=== PATIENT | male | born 1975 | race Caucasian/White ===

== ENCOUNTER 2020-11-22 04:38 | Emergency (ER) | payer SELFPAY ==
[2020-11-22 04:54] VITALS: BP 152/104; PULSE 93; RESP 16; TEMP 36.6; O2SAT 99; BMI 24.4
--- NOTE | 2020-11-22 05:08 | XRR_ITS ---
PROCEDURE INFORMATION: Exam: XR Cervical Spine Exam date and time: 11/22/2020 5:08 AM Age: 45 years old Clinical indication: Radicular pain (radiculopathy); Location of radicular pain not specified; Prior surgery; Surgery date: 6+ months; Surgery type: C spine; Additional info: Left radicular neck pain TECHNIQUE: Imaging protocol: XR of the cervical spine. Views: 2 or 3 views. COMPARISON: No relevant prior studies available. FINDINGS: Bones/joints: Anterior cervical fixation hardware is in place C5-C6. There is normal vertebral body alignment. There are normal vertebral body heights. The dens is intact. The lateral masses of C1 are symmetric. Mild disc space narrowing C4-C5 and C6-C7. No fracture. Soft tissues: Atlantodental interval and prevertebral soft tissues are normal. Other findings: . XR/XR cervical spine 3V* 70630 IMPRESSION: 1. No fracture. 2. Mild disc space narrowing C4-C5 and C6-C7.
--- NOTE | 2020-11-22 05:18 | W.ED.BACK ---
HPI - Back Pain/Injury General: Chief Complaint: Back Pain/Injury Stated Complaint: neck injury Time Seen by Provider: 11/22/20 05:01 History of Present Illness: HPI Narrative: 45-year-old male with a history of fusion at C5-6. He presents with neck pain radiating into his left arm, with a burning sensation in his left upper extremity worsening over a couple weeks now. He was having trouble sleeping with it, so decided to come in. He notes he is not dropping things any more than he had prior. MD elicited complaint: other Onset (ago): day(s) Timing: constant and progressively worsening Severity: moderate Similar Symptoms Previously: Yes Quality: burning Radiation: other (Left upper extremity) Exacerbating factors: movement and lifting Relieving factors: none Associated symptoms: Deny abdominal pain, chills, change in bowel habits, dysuria, fever(s), nausea, vomiting or weakness Treatments prior to arrival: ASA Review of Systems Const: Denies: fever(s) or chills Card: Denies: chest pain Resp: Reports: non-productive cough; Denies: dyspnea or productive cough GI: Denies: abdominal pain, nausea, vomiting or change in bowel habits : Denies: dysuria Neuro: Reports: numbness in extremities; Denies: headache(s) or weakness in extremities Physical Exam Const: COMMON NORMALS: no acute distress, patient oriented x3 and alert HENMT: COMMON NORMALS: normocephalic, atraumatic and Normal external nose present HEAD & SCALP: normocephalic and atraumatic FACE & SINUS: normal facial exam NOSE: Normal external nose present Neck/C-Spine: CERVICAL SPINE: Yes Cervical spine tenderness OTHER: Examination of the cervical spine reveals midline tenderness around C5 with a soft positive Spurling's test on the left. Intact strength, and neurovascular status to the left upper extremity. Chest: COMMONS NORMALS: normal inspection of the chest Resp: COMMON NORMALS: normal respiratory effort Neuro: COMMON NORMALS: patient oriented x3 SENSORIUM/ORIENTATION: Yes alert Course Vital Signs: Vital signs: Vital Signs Temperature 97.9 F 11/22/20 04:54 Pulse Rate 93 11/22/20 04:54 Respiratory Rate 16 11/22/20 04:54 Blood Pressure 152/104 11/22/20 04:54 Pulse Oximetry 99 11/22/20 04:54 MDM - Back Pain/Injury MDM Narrative: Medical decision making narrative: 45-year-old male with radicular neck pain. Has had a prior fusion. X-ray shows stable appearing hardware. He has some arthritic change below which could have irritated the disc. We will treat with a burst of corticosteroid, and pain medication. Discharge Plan Discharge Patient Disposition: Home Clinical Impression: Cervical radiculopathy Condition: Stable Prescriptions: New Medrol (Dennis) 4 mg tablets,dose pack See Rx Instructions .ROUTE .COMPLEX Qty: 21 RF: 0 hydrocodone-acetaminophen 5-325 mg tablet 1 tab PO Q8H PRN (Reason: pain) Qty: 7 RF: 0 Discharge Orders: Discharge ED (Routine); Ordered 11/22/20 Ordered By: Costa Chavez Discharge Diet: Advance as tolerated Discharge Activity: Increase activity as tolerated Activity Restrictions/Additional Instructions: Return for fever greater than 100, if cannot weakness of the arm with dropping objects, etc. See your doctor in follow-up, as further outpatient testing may be needed. Coding Level of Care Code ED [employer] Fwd Exam Detailed
[2020-11-22 06:08] VITALS: BP 154/89; PULSE 89; RESP 16; TEMP 36.6; O2SAT 99
== END 2020-11-22 06:10 | disposition home or self-care (01) ==
PROVIDERS: Emergency Provider Emergency Medicine
DX: M54.12 Radiculopathy, cervical region (principal)
CPT/HCPCS: 72040; 99282